=== PATIENT | female | born 1950 | race Caucasian/White ===

== ENCOUNTER 2022-11-27 14:05 | Inpatient (IN) | payer OTHER ==
[~2022-11-27] VITALS: Ht 154.9 cm; Wt 72.6 kg
[~2022-11-27 14:05] MED LIST: AMIT50TA3 PO; GABA-531 PO; GLU500 PO; PRO40 PO; SIMV-343 PO
[2022-11-27 14:40] VITALS: BP_SYST 130; PULSE 83; RESP 18; TEMP 98.3; O2SAT 95
[2022-11-27 16:18] LABS: BASOPHILS % (AUTO) 0.4 % (0.0-2.0); EOSINOPHILS # (AUTO) 0.1 K/uL (0.0-0.4); EOSINOPHILS % (AUTO) 1.2 % (0.0-4.0); HEMATOCRIT 37.5 % (36-48); LYMPHOCYTES # (AUTO) 2.4 K/uL (1.0-5.5); LYMPHOCYTES % (AUTO) 21.7 % (20.5-51.5); MEAN CORPUSCULAR HEMOGLOBIN 27 pg (27-31); MEAN CORPUSCULAR HGB CONC 32 % (32-36); MEAN CORPUSCULAR VOLUME 84 fL (79.0-98.0); MONOCYTES # (AUTO) 0.9 K/uL (0.0-1.0); MONOCYTES % (AUTO) 8.3 % (1.7-9.3); NEUTROPHILS # (AUTO) 7.6 K/uL (1.8-7.7); NEUTROPHILS % (AUTO) 68.4 % (40.0-70.0); PLATELET COUNT (AUTO) 343 K/uL (130-430); RED BLOOD CELL COUNT(AUTO) 4.48 MIL/uL (4.2-6.2); RED CELL DISTRIBUTION WIDTH 15.1 % (9.0-15.0); WHITE BLOOD COUNT (AUTO) 11.1 K/uL (4.8-10.8)
[2022-11-27 16:29] LABS: ANION GAP 6 (5-15); CALCIUM 9.2 mg/dL (8.4-11.0); CARBON DIOXIDE 30 mmol/L (23-29); CHLORIDE 99 mmol/L (98-107); CREATININE 0.64 mg/dL (0.55-1.30); GLUCOSE 104 mg/dL (74-106); POTASSIUM 4.2 mmol/L (3.5-5.1); SODIUM SERUM 135 mmol/L (136-145); UREA NITROGEN, BLOOD 15 mg/dL (8-21)
[2022-11-27 16:33] LABS: ALANINE AMINOTRANSFERASE 16 U/L (12-78); ALBUMIN 3.6 g/dL (3.4-4.8); ASPARTATE AMINOTRANSFERASE 14 U/L (10-37); LIPASE 68 U/L (73-393); TOTAL BILIRUBIN 0.3 mg/dL (0.0-1.0); TOTAL PROTEIN, SERUM 7.3 g/dL (6.4-8.3)
[2022-11-27] MEDS ORDERED: ACETAMINOPHEN 325 MG TABLET PO ONE (19:15)
[2022-11-27] MEDS ORDERED: LORazepam 2 MG/ML VIAL IVP ONE (19:15)
[2022-11-27] MEDS ORDERED: ONDANSETRON HCL 4 MG/2 ML VIAL IVP ONE (21:00)
[2022-11-27] MEDS ORDERED: MORPHINE 2 MG/ML INJ. SYRINGE IVP ONE (21:00)
[2022-11-27 21:23] LABS: BILIRUBIN,URINE NEGATIVE (NEGATIVE); COLOR,URINE YELLOW (YELLOW); GLUCOSE,URINE NEGATIVE (NEGATIVE); KETONES,URINE NEGATIVE (NEGATIVE); LEUKOCYTE ESTERASE ,URINE 1+ (NEGATIVE); NITRITE, URINE NEGATIVE (NEGATIVE); PROTEIN URINE NEGATIVE (NEGATIVE); UROBILINOGEN,URINE 0.2 (0.2-1.0)
[2022-11-27 21:28] LABS: BLOOD, URINE TRACE (NEGATIVE)
[2022-11-27 21:53] LABS: BACTERIA,URINE FEW /HPF (None Seen); CLARITY/URINE SLIGHTLY CLOUDY (CLEAR)
[2022-11-27] MEDS ORDERED: cefTRIAXone 1 GM in D5W 50 ML IV ONE (22:30)
[2022-11-28] MEDS ORDERED: cefTRIAXone 1 GM VIAL ONE (00:30)
[2022-11-28 01:40] VITALS: O2SAT 95
[2022-11-28 03:26] VITALS: BP_SYST 155; PULSE 79; RESP 16; TEMP 97.5
[2022-11-28] MEDS: D5/0.45 NS 1,000 ML IV SCH ×3 (06:11→20:01)
[2022-11-28 08:00] VITALS: BP_SYST 176; PULSE 82; RESP 16; TEMP 98.2; O2SAT 97
[2022-11-28] MEDS ORDERED: ONDANSETRON 4 MG ODT TAB PO PRN (08:15)
[2022-11-28] MEDS ORDERED: ONDANSETRON HCL 4 MG/2 ML VIAL IM PRN (08:15)
[2022-11-28] MEDS ORDERED: cefTRIAXone 1 GM IVPB PREMIX 50 ML IV SCH (09:00)
[2022-11-28] MEDS: SIMVASTATIN 20 MG TABLET PO SCH (09:23)
[2022-11-28] MEDS: AMITRIPTYLINE HCL 25 MG TABLET (ELAVIL) PO SCH (09:24)
[2022-11-28] MEDS: PANTOPRAZOLE SODIUM 40 MG TAB PO SCH (09:24)
[2022-11-28] MEDS: metFORMIN HCL 500 MG TABLET PO SCH (09:24)
[2022-11-28 11:41] VITALS: BP_SYST 151; PULSE 90; RESP 18; TEMP 98; O2SAT 94
[2022-11-28 14:31] LABS: ALANINE AMINOTRANSFERASE 23 U/L (12-78); ALBUMIN 3.2 g/dL (3.4-4.8); ANION GAP 6 (5-15); ASPARTATE AMINOTRANSFERASE 23 U/L (10-37); CALCIUM 8.4 mg/dL (8.4-11.0); CARBON DIOXIDE 29 mmol/L (23-29); CHLORIDE 100 mmol/L (98-107); CREATININE 0.65 mg/dL (0.55-1.30); GLUCOSE 119 mg/dL (74-106); POTASSIUM 3.9 mmol/L (3.5-5.1); SODIUM SERUM 135 mmol/L (136-145); TOTAL BILIRUBIN 0.3 mg/dL (0.0-1.0); TOTAL PROTEIN, SERUM 6.8 g/dL (6.4-8.3); UREA NITROGEN, BLOOD 10 mg/dL (8-21)
[2022-11-28 16:00] VITALS: BP_SYST 147; PULSE 88; RESP 18; TEMP 97.9; O2SAT 96
[2022-11-28 20:00] VITALS: BP_SYST 127; PULSE 70; RESP 18; TEMP 98.2; O2SAT 98
[2022-11-28] MEDS: cefTRIAXone 1 GM IVPB PREMIX 50 ML IV SCH (20:13)
[2022-11-29 02:19] VITALS: BP_SYST 110; PULSE 74; RESP 18; TEMP 98.7; O2SAT 96
[2022-11-29 03:21] VITALS: O2SAT 96
[2022-11-29] MEDS: D5/0.45 NS 1,000 ML IV SCH ×2 (06:51→15:16)
[2022-11-29 08:50] VITALS: BP_SYST 135; PULSE 79; RESP 18; TEMP 97.9; O2SAT 97
[2022-11-29] MEDS: AMITRIPTYLINE HCL 25 MG TABLET (ELAVIL) PO SCH ×2 (09:00→09:12)
[2022-11-29] MEDS: metFORMIN HCL 500 MG TABLET PO SCH (09:12)
[2022-11-29] MEDS: PANTOPRAZOLE SODIUM 40 MG TAB PO SCH (09:12)
[2022-11-29] MEDS: SIMVASTATIN 20 MG TABLET PO SCH (09:12)
[2022-11-29 10:03] LABS: BASOPHILS % (AUTO) 0.5 % (0.0-2.0); EOSINOPHILS # (AUTO) 0.1 K/uL (0.0-0.4); EOSINOPHILS % (AUTO) 1.7 % (0.0-4.0); HEMATOCRIT 36.1 % (36-48); HEMOGLOBIN 11.8 g/dL (12.0-16.0); LYMPHOCYTES # (AUTO) 1.9 K/uL (1.0-5.5); MEAN CORPUSCULAR HEMOGLOBIN 28 pg (27-31); MEAN CORPUSCULAR HGB CONC 33 % (32-36); MEAN CORPUSCULAR VOLUME 85 fL (79.0-98.0); MONOCYTES # (AUTO) 0.7 K/uL (0.0-1.0); MONOCYTES % (AUTO) 9.9 % (1.7-9.3); NEUTROPHILS # (AUTO) 4.3 K/uL (1.8-7.7); NEUTROPHILS % (AUTO) 60.9 % (40.0-70.0); PLATELET COUNT (AUTO) 300 K/uL (130-430); RED BLOOD CELL COUNT(AUTO) 4.26 MIL/uL (4.2-6.2); RED CELL DISTRIBUTION WIDTH 15.1 % (9.0-15.0); WHITE BLOOD COUNT (AUTO) 7.1 K/uL (4.8-10.8)
[2022-11-29 11:11] LABS: BILIRUBIN,URINE NEGATIVE (NEGATIVE); CLARITY/URINE Clear (CLEAR); COLOR,URINE Light yellow (YELLOW); GLUCOSE,URINE NEGATIVE (NEGATIVE); KETONES,URINE NEGATIVE (NEGATIVE); LEUKOCYTE ESTERASE ,URINE NEGATIVE (NEGATIVE); NITRITE, URINE NEGATIVE (NEGATIVE); PROTEIN URINE NEGATIVE (NEGATIVE); UROBILINOGEN,URINE 0.2 (0.2-1.0)
[2022-11-29 11:53] LABS: BLOOD, URINE TRACE (NEGATIVE)
[2022-11-29 12:04] VITALS: BP_SYST 150; PULSE 88; RESP 20; TEMP 97.9; O2SAT 94
[2022-11-29 16:00] VITALS: BP_SYST 145; PULSE 90; RESP 18; TEMP 98; O2SAT 96
[2022-11-29] MEDS ORDERED: LEVO250T73 PO (19:51)
[2022-11-29 20:00] VITALS: BP_SYST 147; PULSE 77; RESP 18; TEMP 98.2; O2SAT 97
[2022-11-29] MEDS ORDERED: LACTULOSE 20 GM/30 ML UDC PO ONE (21:00)
[2022-11-29] MEDS: cefTRIAXone 1 GM IVPB PREMIX 50 ML IV SCH (21:13)
[2022-11-30 00:41] VITALS: BP_SYST 137; PULSE 75; RESP 16; TEMP 98.6; O2SAT 98
[2022-11-30 01:09] VITALS: O2SAT 96
[2022-11-30] MEDS: D5/0.45 NS 1,000 ML IV SCH (01:54)
[2022-11-30 05:49] LABS: BASOPHILS % (AUTO) 0.5 % (0.0-2.0); EOSINOPHILS # (AUTO) 0.2 K/uL (0.0-0.4); EOSINOPHILS % (AUTO) 2.7 % (0.0-4.0); HEMATOCRIT 35.8 % (36-48); HEMOGLOBIN 11.6 g/dL (12.0-16.0); LYMPHOCYTES # (AUTO) 2.1 K/uL (1.0-5.5); LYMPHOCYTES % (AUTO) 30.6 % (20.5-51.5); MEAN CORPUSCULAR HEMOGLOBIN 27 pg (27-31); MEAN CORPUSCULAR HGB CONC 32 % (32-36); MEAN CORPUSCULAR VOLUME 84 fL (79.0-98.0); MONOCYTES # (AUTO) 0.7 K/uL (0.0-1.0); MONOCYTES % (AUTO) 10.8 % (1.7-9.3); NEUTROPHILS # (AUTO) 3.8 K/uL (1.8-7.7); NEUTROPHILS % (AUTO) 55.4 % (40.0-70.0); PLATELET COUNT (AUTO) 310 K/uL (130-430); RED BLOOD CELL COUNT(AUTO) 4.28 MIL/uL (4.2-6.2); RED CELL DISTRIBUTION WIDTH 14.7 % (9.0-15.0); WHITE BLOOD COUNT (AUTO) 6.9 K/uL (4.8-10.8)
[2022-11-30 06:13] LABS: ANION GAP 7 (5-15); CALCIUM 8.2 mg/dL (8.4-11.0); CARBON DIOXIDE 28 mmol/L (23-29); CHLORIDE 101 mmol/L (98-107); CREATININE 0.66 mg/dL (0.55-1.30); GLUCOSE 118 mg/dL (74-106); POTASSIUM 3.7 mmol/L (3.5-5.1); SODIUM SERUM 136 mmol/L (136-145); UREA NITROGEN, BLOOD 11 mg/dL (8-21)
[2022-11-30 08:00] VITALS: BP_SYST 137; PULSE 82; RESP 16; TEMP 98.1; O2SAT 95
[2022-11-30] MEDS: metFORMIN HCL 500 MG TABLET PO SCH (08:44)
[2022-11-30] MEDS: SIMVASTATIN 20 MG TABLET PO SCH (08:44)
[2022-11-30] MEDS: PANTOPRAZOLE SODIUM 40 MG TAB PO SCH (08:44)
[2022-11-30] MEDS: AMITRIPTYLINE HCL 25 MG TABLET (ELAVIL) PO SCH (08:47)
[2022-11-30 09:05] VITALS: O2SAT 97
[2022-11-30 09:20] VITALS: BP_SYST 158; PULSE 86; RESP 18; TEMP 98.8; O2SAT 98
== END 2022-11-30 09:55 | disposition home or self-care (01) | DRG 392 ==
LOC: SED 14:05 → SMU 22:43 → SED 23:07 → SMU 23:25
PROVIDERS: ADMIT Specialist; ATTEND Specialist
DX: K57.90 Diverticulosis of intestine, part unspecified, without perforation or abscess without bleeding (principal); N30.90 Cystitis, unspecified without hematuria; E86.0 Dehydration; F41.9 Anxiety disorder, unspecified; G89.29 Other chronic pain; F32.A Depression, unspecified; Z88.5 Allergy status to narcotic agent; Z88.8 Allergy status to other drugs, medicaments and biological substances; Z79.899 Other long term (current) drug therapy
CPT/HCPCS: 36415; 70450-TC; 71045; 72125-TC; 76376; 80048; 80053; 81000; 81003; 82962; 83690; 84484; 85025; 87086; 93005; 96374; 96375; 99285; J0696; J2270; J2405

== ENCOUNTER 2023-09-27 10:02 | Emergency (ER) | payer OTHER ==
[~2023-09-27] VITALS: Ht 152.4 cm; Wt 72.6 kg
[~2023-09-27 10:02] MED LIST changes: +LEVO250T73 PO
[2023-09-27 10:15] VITALS: BP_SYST 138; PULSE 85; RESP 20; TEMP 98.3; O2SAT 98
[2023-09-27] MEDS: ACETAMINOPHEN 325 MG TABLET PO ONE ×2 (10:28→16:51)
[2023-09-27] MEDS: ONDANSETRON 4 MG ODT TAB PO ONE (10:28)
[2023-09-27 10:46] LABS: BASOPHILS % (AUTO) 0.3 % (0.0-2.0); EOSINOPHILS # (AUTO) 0.1 K/uL (0.0-0.4); EOSINOPHILS % (AUTO) 1.3 % (0.0-4.0); HEMATOCRIT 36.6 % (36-48); HEMOGLOBIN 12.1 g/dL (12.0-16.0); LYMPHOCYTES # (AUTO) 2.2 K/uL (1.0-5.5); MEAN CORPUSCULAR HEMOGLOBIN 28 pg (27-31); MEAN CORPUSCULAR HGB CONC 33 % (32-36); MEAN CORPUSCULAR VOLUME 84 fL (79.0-98.0); MONOCYTES % (AUTO) 11.1 % (1.7-9.3); NEUTROPHILS # (AUTO) 5.8 K/uL (1.8-7.7); NEUTROPHILS % (AUTO) 63.3 % (40.0-70.0); PLATELET COUNT (AUTO) 378 K/uL (130-430); RED BLOOD CELL COUNT(AUTO) 4.38 MIL/uL (4.2-6.2); WHITE BLOOD COUNT (AUTO) 9.1 K/uL (4.8-10.8)
[2023-09-27 10:50] LABS: BILIRUBIN,URINE 2+ (NEGATIVE); CLARITY/URINE CLEAR (CLEAR); COLOR,URINE YELLOW (YELLOW); GLUCOSE,URINE NEGATIVE (NEGATIVE); KETONES,URINE TRACE (NEGATIVE); LEUKOCYTE ESTERASE ,URINE TRACE (NEGATIVE); NITRITE, URINE NEGATIVE (NEGATIVE); PH,URINE 5.5 (5.0-8.0); PROTEIN URINE 2+ (NEGATIVE); UROBILINOGEN,URINE 0.2 (0.2-1.0)
[2023-09-27 10:52] LABS: BLOOD, URINE TRACE (NEGATIVE)
[2023-09-27 11:02] LABS: PROTHROMBIN TIME 10.5 SECS (9.5-12.5)
[2023-09-27 11:07] LABS: BACTERIA,URINE None Seen /HPF (None Seen)
[2023-09-27 11:08] LABS: HYALINE CASTS, URINE 0-10 /LPF (None Seen); MUCUS,URINE 1+ /LPF (None Seen)
[2023-09-27 11:13] LABS: ANION GAP 9 (5-15); CALCIUM 8.9 mg/dL (8.4-11.0); CARBON DIOXIDE 27 mmol/L (23-29); CHLORIDE 92 mmol/L (98-107); GLUCOSE 112 mg/dL (74-106); LIPASE 52 U/L (16-77); POTASSIUM 3.9 mmol/L (3.5-5.1); SODIUM SERUM 128 mmol/L (136-145); UREA NITROGEN, BLOOD 19 mg/dL (8-21)
[2023-09-27] MEDS: levETIRAcetam 750 MG in NS 100 ML IV ONE (14:02)
[2023-09-27 15:51] VITALS: BP_SYST 130; PULSE 80; RESP 20; TEMP 98.3; O2SAT 98
== END 2023-09-27 17:53 | disposition short-term general hospital (02) ==
LOC: SED 10:02
DX: S06.5XAA Traumatic subdural hemorrhage with loss of consciousness status unknown, initial encounter (principal); E87.1 Hypo-osmolality and hyponatremia; Z20.822 Contact with and (suspected) exposure to COVID-19; E11.9 Type 2 diabetes mellitus without complications; F41.9 Anxiety disorder, unspecified; Z88.5 Allergy status to narcotic agent; Z79.899 Other long term (current) drug therapy; Z79.2 Long term (current) use of antibiotics; X58.XXXA Exposure to other specified factors, initial encounter; Y93.89 Activity, other specified; Y92.89 Other specified places as the place of occurrence of the external cause; Y99.8 Other external cause status
CPT/HCPCS: 99285; 96365; 70450; 87426; 80048; 81001; 83690; 85025; 85610; 85730; 36415; Q0162; J1953; 81000; 81015